=== PATIENT | female | born 1995 | race African-American/Black ===

== ENCOUNTER 2017-03-15 23:51 | Emergency (ER) | payer BC ==
[~2017-03-15] VITALS: Ht 165.1 cm; Wt 72.6 kg
--- NOTE | 2017-03-16 00:45 | NUR ---
Patient discharged to home in stable conditon. Written and verbal after care instructions given. Patient verbalizes understanding of instructions.
== END 2017-03-16 00:46 | disposition home or self-care (01) ==
LOC: ER 03-16 00:46
DX: I95.9 Hypotension, unspecified (principal); F10.20 Alcohol dependence, uncomplicated; F17.200 Nicotine dependence, unspecified, uncomplicated; F11.10 Opioid abuse, uncomplicated
CPT/HCPCS: 93005; A4663